=== PATIENT | male | born 1960 | race Caucasian/White ===

== ENCOUNTER 2018-04-05 06:08 | Day surgery (SDC) | payer BC ==
[~2018-04-05] VITALS: Ht 190.5 cm; Wt 137.3 kg
[~2018-04-05 06:08] MED LIST: FLUT12AE9 INH; IPRA3AMP31 IH; TERB250T4 PO
[2018-04-05] MEDS ORDERED: normal saline 1000ml 1,000 ML IV PRN (06:30)
[2018-04-05] MEDS ORDERED: FLUT1DIS4 INH (06:44)
[2018-04-05] MEDS ORDERED: ALLO100T PO (06:44)
[2018-04-05] MEDS ORDERED: MONT10TA24 PO (06:44)
[2018-04-05] MEDS ORDERED: ALBU8.5H8 INH (06:44)
[2018-04-05 06:54] VITALS: BP 134/71
[2018-04-05 07:26] LABS: BASOPHILS % (AUTO) 0.9 % (0-1); EOSINOPHILS # (AUTO) 0.1 X10'3 (0-0.9); EOSINOPHILS % (AUTO) 2.3 % (0-6); HEMATOCRIT 44.5 % (42.0-52.0); HEMOGLOBIN 14.7 g/dl (14.0-17.9); LYMPHOCYTES # (AUTO) 1.1 X10'3 (1.1-4.8); LYMPHOCYTES % (AUTO) 27.7 % (21-51); MEAN CORPUSCULAR HEMOGLOBIN 28.5 PG (27.0-31.0); MEAN CORPUSCULAR HGB CONC 33.1 g/dL (33.0-36.5); MEAN CORPUSCULAR VOLUME 86.2 FL (78-98); MEAN PLATELET VOLUME 9.3 FL (7.4-10.4); MONOCYTES # (AUTO) 0.4 X10'3 (0-0.9); MONOCYTES % (AUTO) 9.5 % (2-12); NEUTROPHILS # (AUTO) 2.5 X10'3 (1.8-7.7); NEUTROPHILS % (AUTO) 59.6 % (42-75); PLATELET COUNT 127 X10'3 (140-440); RED BLOOD COUNT 5.16 X10'6 (4.70-6.10); WHITE BLOOD COUNT 4.1 X10'3 (4.5-11.0)
[2018-04-05 07:37] LABS: ANION GAP 9 (8-16); BLOOD UREA NITROGEN 16 MG/DL (7-18); BUN/CREATININE RATIO 14.8 (5.4-32.0); CHLORIDE 105 MMOL/L (99-107); CREATININE 1.08 MG/DL (0.60-1.10); GLUCOSE 106 MG/DL (70-104); POTASSIUM 3.7 MMOL/L (3.5-5.1); SODIUM 141 MMOL/L (135-145); eGFR 70 ML/MIN
[2018-04-05] MEDS ORDERED: LIDOcaine 1%/PF 5ML 10 MG/ML VIAL ONE ×2 (08:33→08:51)
[2018-04-05] MEDS ORDERED: fentaNYL/PF 50MCG/1 ML 2ML syringe ONE (08:33)
[2018-04-05] MEDS ORDERED: heparin sodium, porcine/PF 100unit/ml 5ML syringe ONE (08:33)
[2018-04-05] MEDS ORDERED: midazolam 2 mg/2 ml injection ONE (08:33)
[2018-04-05] MEDS ORDERED: heparin sodium, porcine/PF 100unit/ml 5ML syringe ICATH ONE (08:40)
[2018-04-05] MEDS ORDERED: midazolam 2 mg/2 ml injection IV PRN (08:40)
[2018-04-05] MEDS ORDERED: LIDOcaine 1%/PF 5ML 10 MG/ML VIAL SQ ONE (08:40)
[2018-04-05] MEDS ORDERED: fentaNYL/PF 50MCG/1 ML 2ML syringe IV PRN (08:40)
--- NOTE | 2018-04-05 09:22 | NUR ---
CALLED [facility] PER [facility] [employer] SPECIMEN CAN BE PLACED IN EITHER CARBOWAX OR FORMALIN
[2018-04-05 10:13] VITALS: BP 123/84
[2018-04-05 10:15] VITALS: BP 127/84
[2018-04-05 10:30] VITALS: BP 129/70
[2018-04-05 10:45] VITALS: BP 131/69
== END 2018-04-05 11:05 | disposition home or self-care (01) ==
LOC: SSTAY O 06:08
PROVIDERS: ATTEND Radiology Vascular & Interventional Radiology
DX: C82.90 Follicular lymphoma, unspecified, unspecified site (principal); J45.909 Unspecified asthma, uncomplicated; Z79.899 Other long term (current) drug therapy; Z82.49 Family history of ischemic heart disease and other diseases of the circulatory system; Z80.3 Family history of malignant neoplasm of breast; Z80.8 Family history of malignant neoplasm of other organs or systems
CPT/HCPCS: 36415; 36561; 38505; 76942; 77001; 80048; 85025; 99152; 99153; J1642; J2001; J2250; J3010; J7030; 76937; A4620; A6219; C1788; C1894

== ENCOUNTER 2024-11-20 15:25 | Outpatient (CLI) | payer MEDICARE, OTHER ==
[~2024-11-20 15:25] MED LIST changes: +ALBU8.5H17 INH; +ALLO100T PO; -FLUT12AE9 INH; +FLUT1DIS4 INH; -IPRA3AMP31 IH; +MONT-40 PO; -TERB250T4 PO
--- NOTE | 2024-11-20 16:33 | RADIOLOGY REPORT ---
INDICATION: PAIN IN RIGHT FOOT,EFFUSION, RIGHT ANKLE COMPARISON: None TECHNIQUE: CT of the right foot and ankle was performed without contrast. Volume transverse images were obtained and reconstructed in multiple planes using bone and soft tissue algorithms. Radiation Dose Information: CT Dose: CTDI volume is 14.36 mGy. Dose-length product is 418.76 mGy*cm FINDINGS: Extensive instrumentation throughout the midfoot and hindfoot with attempted arthrodesis at the calcaneal cuboid joint, subtalar joint, and talonavicular joints. Multiple screws are seen at the TMT joints. No fracture or malalignment. Two of the talonavicular screws have fractured at the mid portion. 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 Severe degenerative changes throughout the mid foot. IMPRESSION: Instrumentation throughout the mid and hindfoot. Fractures of two of the talonavicular screws. All CT scans at this medical facility are performed using dose modulation techniques as appropriate to a performed exam including the following: Automated exposure control was utilized; Adjustment of the MA And/or KV according to patient size; And use of iterative reconstruction technique.
== END 2024-11-20 23:59 | disposition home or self-care (01) ==
LOC: RAD 15:25
PROVIDERS: ATTEND Podiatrist Foot & Ankle Surgery
DX: S92.251A Displaced fracture of navicular [scaphoid] of right foot, initial encounter for closed fracture (principal); M79.671 Pain in right foot; M25.471 Effusion, right ankle; M19.071 Primary osteoarthritis, right ankle and foot; M25.374 Other instability, right foot; M21.079 Valgus deformity, not elsewhere classified, unspecified ankle; M24.573 Contracture, unspecified ankle; M21.6X9 Other acquired deformities of unspecified foot; Z13.1 Encounter for screening for diabetes mellitus; E55.9 Vitamin D deficiency, unspecified; X58.XXXA Exposure to other specified factors, initial encounter; Y93.89 Activity, other specified; Y92.89 Other specified places as the place of occurrence of the external cause; Y99.8 Other external cause status
CPT/HCPCS: 73700